=== PATIENT | female | born 2000 ===

== ENCOUNTER 2024-08-11 13:16 | Inpatient (IN) | payer OTHER ==
[~2024-08-11] VITALS: Ht 165.1 cm; Wt 42.7 kg
[2024-08-11 16:42] VITALS: BP 116/89
[2024-08-11 16:48] VITALS: BP 116/89
[2024-08-11] MEDS ORDERED: LORazepam 2 MG/ML 1ML Injection IM PRN (16:50)
[2024-08-11] MEDS ORDERED: HydrOXYzine Pamoate 50 MG Cap PO PRN (16:55)
[2024-08-11] MEDS ORDERED: TraZODone HCl 50 MG Tab PO PRN (16:55)
[2024-08-11] MEDS ORDERED: LORazepam 2 MG Tab PO PRN (16:55)
[2024-08-11] MEDS ORDERED: Melatonin 3 MG Tab PO PRN (16:55)
[2024-08-11] MEDS ORDERED: Haloperidol 5 MG Tab PO PRN (16:55)
[2024-08-11] MEDS ORDERED: Ibuprofen 600 MG Tab PO PRN (16:55)
[2024-08-11] MEDS ORDERED: Aluminum Hydroxide 320MG/5ML 473 ML PO PRN (17:00)
[2024-08-11] MEDS ORDERED: DiphenhydrAMINE HCl 50 MG Cap PO PRN (17:00)
[2024-08-11] MEDS ORDERED: Calcium Carbonate 500 MG Tab Chew PO PRN (17:00)
[2024-08-11] MEDS ORDERED: PRENATAL TABLE1 EAC2 PO (17:01)
[2024-08-11] MEDS ORDERED: Haloperidol Lactate Inj. 5 MG/ML Injection IM PRN (17:05)
[2024-08-11] MEDS ORDERED: FLU VACC TS2024-25(6MOS UP)/PF 45 MCG/0.5 ML SYRINGE IM SCH (17:05)
[2024-08-11] MEDS ORDERED: Acetaminophen 325 MG TABLET PO PRN (17:05)
[2024-08-11] MEDS ORDERED: Ondansetron 4 MG SoluTab MM PRN (17:40)
[2024-08-11] MEDS ORDERED: OLANZapine ODT 10 MG Tab PO PRN (17:40)
[2024-08-11] MEDS ORDERED: Polyethylene Glycol 3350 17 gm PO PRN (17:40)
[2024-08-11] MEDS ORDERED: DiphenhydrAMINE HCl 50 MG/ML 1ML Vial IV PRN (17:40)
--- NOTE | 2024-08-11 18:27 | NUR ---
SHIFT SUMMARY/ADMISSION NOTE PT ARRIVED TO [facility] AT APPROX 1610 FROM [facility] [place] PT IS AxOx2-3 WITH INTERM CONFUSION AND FLIGHT OF IDEAS, PARANOIA AND AGITATION. THE REASON FOR ADMISSION IS PSYCHOSIS. PT CAME HERE ON A INVOL HOLD. PT'S ADMISSION COMPLETE BUT MAY NOT BE THOROUGH HER SPEECH WAS TANGENTIAL AND CONITINUOUSLY OFF TOPIC DURING ADMISSION ASSESSMENT/QUESTIONS. SHE IS FIXATED ON GETTING HER PHONE AND CLOTHES AND GETTING HOME. PT HAS SPOKEN WITH HER MOTHER AND BOYFRIEND MULTIPLE TIMES AND SEEMS TO BE GETTING MORE RAMPED UP AND TEARFUL WITH EACH CALL. THIS RN SPOKE WITH HER MOTHER AFTER PT TO REASSURE HER AND REITERATE THE TREATMENT PLAN FOR THE PATIENT AT THIS TIME. WILL CONTINUE TO REDIRECT, REASSURE AND DISTRACT THE PATIENT THIS EVENING. PHARMACEUTICAL MEDICATIONS ALSO PROVIDED NEEDED. PT IS UNDERWEIGHT PER STANDING SCALE= 89.4LBS. DIETARY CONSULT ORDERED. PT IS CURRENTLY RECEIVING MEDS WITH RN AT THIS TIME. DISTRACTION APPEARS TO BE MOST HELPFUL FOR HER TO COPE.
[2024-08-11] MEDS ORDERED: Nicotine Polacrilex 2 MG Gum PO PRN (18:45)
[2024-08-11] MEDS ORDERED: Valproic Acid Syrup 250MG / 5ML 1 ML PO ONE (21:00)
--- NOTE | 2024-08-12 04:10 | NUR ---
SHIFT SUMMARY PATIENT EXTREMELY ANXIOUS AND PACING HALLS AT BEGINNING OF SHIFT, ASKING FOR HER PHONE AND PERSONAL BLANKET. HAVING DIFFICULTY HOLDING A CONVERSATION DUE TO FLIGHT OF IDEAS. ORIENTED TO PERSON AND MONTH ONLY. DENIES SI, HI, OR AVH. PATIENT COOPERATIVE WITH TAKING ORAL MEDICATIONS. FIRST DOSE OF DEPAKENE GIVEN. TRAZODONE AND MELATONIN GIVEN FOR SLEEP. PATIENT SLEEPING WELL T/O NIGHT. AWAKENS THIS MORNING TO SLIGHT STIMULI, FALLING BACK TO SLEEP EASILY.
--- NOTE | 2024-08-12 08:21 | NUR ---
PT DECLINED BREAKFAST, OFFERED ENSURE, THIS WAS ALSO DECLINED, SHE REPORTS SHE WOULD RATHER SLEEP AT THIS TIME.
[2024-08-12] MEDS ORDERED: Multivitamins 1 Tab PO SCH (09:00)
[2024-08-12 09:03] VITALS: BP 132/74
[2024-08-12 11:38] LABS: Bun/Creatinine Ratio 22.2 (12.0-20.0); Calcium, Blood 9.1 mg/dL (8.5-10.1); Creatinine, Blood 0.95 mg/dL (0.40-1.00); Magnesium, Blood 2.3 mg/dL (1.6-2.4); Potassium, Blood 3.1 mmol/L (3.5-5.5)
[2024-08-12] MEDS ORDERED: LORazepam 1 MG Tab PO ONE (11:50)
--- NOTE | 2024-08-12 12:21 | NUR ---
PT ATTENDED GROUP AND THEN USED THE PHONE, DESPITE HAVING TALKED TO PT ABOUT PLAN PT IMMEDIATELY REQUESTS HER MOTHER PICK HER UP, SHE IS CRYING AND TEARFUL, PHONE CALL ENDED, ATTEMPTED TO REORIENT PT TO TIME AND UNIT, BUT SHE CONTINUES TO SAY SHE NEEDS TO GET HOME BY 3:00 FOR A THERAPY APPT SHE MADE BY PHONE. NEW RX FOR ATIVAN ORDER RECEIVED AND GIVEN.
[2024-08-12] MEDS ORDERED: Valproic Acid Syrup 250MG / 5ML 1 ML PO ONE (12:25)
[2024-08-12 12:49] VITALS: BP 109/72
--- NOTE | 2024-08-12 17:06 | NUR ---
PT HAS NEEDED FREQUENT REDIRECTION AND REORIENTATION, PT STATES SHE WOULD LIKE TO GO HOME, REQUESTS HER PHONE FREQUENTLY. PT REPORTS AT HOME HER MOTHER'S AIR PODS WERE SPEAKING TO HER AND SHE COULD HEAR CONVERSATIONS, ALSO REPORTS HER PHONE IS TELLING HER WHAT TO DO, SHE HAS DIFFICULTY ELABORATING ON THIS. SHE HAS TAKEN A FEW BITES OF FOOD TODAY, ONE ENSURE SHAKE, AN UNCRUSTABLE, SOME FRUIT AND TONIGHT SHE HAS DRANK MOST OF HER HIGH PROTEIN ENSURE. SHE DID HAVE A DIETARY CONSULT TODAY, RECCOMENDATIONS WERE RELAYED TO PROVIDER. PT HAS TAKEN MEDICATIONS WILLINGLY AND IS ABLE TO FOLLOW SIMPLE TASKS AND INSTRUCTIONS.
--- NOTE | 2024-08-13 04:11 | NUR ---
PATIENT SUMMARY: ASSUMED CARE FROM PRIOR SHIFT. PATIENT IS A/OX3, ABLE TO VOICE NEEDS. SHE IS ANXIOUS ABOUT WANTING TO DISCHARGE. SHE HAS PRESSURE SPEEECH WITH SOME IRREGULARITIES IN LOUDNESS AND RHYTHM. REMINDED PATIENT SHE WAS IN A SAFE AND CARING ENVIRONMENT, AND DISCHARGE WAS NOT HAPPENING TONIGHT. INFORMED HER THAT SHE WOULD SEE DR. ROTHMAN AND COULD FURTHER DISCUSS HER POC. SHE CURRENTLY DENIES: SI, VH, AH AND TH. SHE IS COMPLIANT WITH MEDICATIONS AND ASSESSMENT. SHE GOES TO BED ALMOST AT THE BEGINNING OF NOC SHIFT. SHE REFUSED PM SNACKS AND GROUP. SHE SLEEPS THROUGH THE NIGHT WITH NO NOTED BEHAVIORS OR ISSUES. WE WILL CONTINUE TO MONITOR HER WEIGHT AND ENCOURAGE FURTHER NUTRITIONAL SUPPORT. HER MOTHER IS COMING FOR A VISIT LATER TODAY. MOTHER WILL ENCOURAGE/SUPPORT HER STAY IN THE BHU FOR FURTHER NEEDED TREATMENT. WE WILL CONTINUE TO MONITOR EVERY 15 MIN FOR SAFETY AND COMFORT.
--- NOTE | 2024-08-13 06:17 | NUR ---
PATIENT CONTINUES TO SLEEP THROUGH NOC SHIFT. NO NOTED BEHAVIORS OR ISSUES.
--- NOTE | 2024-08-13 08:32 | NUR ---
IMPORTANT MENTAL HEALTH HOLD INFORMATION Patient on mental health hold out of [facility]. SW in regular contact with Lizy CLARK at [phone] or [phone] Day 5 of patient mental health hold reported to be Saturday, August 17, 2024
[2024-08-13] MEDS ORDERED: Valproic Acid Syrup 250MG / 5ML 1 ML PO SCH (09:00)
--- NOTE | 2024-08-13 10:40 | NUR ---
PT DENIED ANY THOUGHTS OF SELF HARM OR HARM AGAINST OTHERS, SHE DENIED AVH OR PHYSICAL PAIN. SHE ENDORSED "A LITTLE BIT OF ANXIETY BECAURSE I WANT TO GO HOME." PT WAS SITTING ON HER BED WRITTING ON GROUP PAPERS. SHE REPORTED, "I'M IN A GOOD MOOD." PT HAS PARTICIPATED IN GROUPS AND BEEN PLEASANT AND COOPERATIVE. SHE GOT REALLY UPSET WHEN SHE WAS TOLD SHE WOULD BE HERE UNTIL EARLY NEXT WEEK. SHE WAS GIVEN A VISTERIL 50MG AND IS NOW IN GROUP.
--- NOTE | 2024-08-13 13:11 | NUR ---
COMMUNICATION WITH FAMILY: PT SPOKE ON THE PHONE WITH HER MOTHER. PT TEARFFUL, REQUESTING THAT THEY COME AND PICK HER UP. HANDED THIS RN THE PHONE AND REQUESTED THAT I TALK TO HER MOTHER. I SPOKE WITH HER MOTHER, REJI. DISCUSSED COMING TO VISIT PT AND CONCERNS R/T TO VISITING. SHE IS AGREEABLE TO REASSESSING PT'S STATUS TOMORROW FOR APPROPRIATENESS VISIT. STATED THAT PT HAS A DEVELOPMENTAL DELAY AND WAS ON AN IEP PLAN IN SCHOOL. STATES THAT PT DOES HAVE TROUBLE PROCESSING DETAILS AND REMEMBERING THINGS. SHE REQUESTED THAT TO HAVE PATIENT CALL HER LATER TONIGHT.
[2024-08-13 15:06] LABS: Bun/Creatinine Ratio 17.8 (12.0-20.0); Calcium, Blood 9.5 mg/dL (8.5-10.1); Creatinine, Blood 0.73 mg/dL (0.40-1.00); Magnesium, Blood 2.2 mg/dL (1.6-2.4); Phosphorus, Blood 3.9 mg/dL (2.5-4.9); Potassium, Blood 3.6 mmol/L (3.5-5.5)
--- NOTE | 2024-08-13 15:53 | NUR ---
PT HAS BEEN CALM THIS AFTERNOON, SHE SPENT TIME WITH THE SOCIAL WORKR AND OTHER STAFF IN THE GROUP ROOM. SHE APPEARS TO BE IN GOOD HUMOR AND HAS BEEN PLEASANT AND COOPERATIVE WITH CARE.
--- NOTE | 2024-08-13 17:47 | NUR ---
PT DRANK 100% OF HER ENSURE AND ATE BITES OF HER DINNER. SHE HAS TALKED TO HER FAMILY SEVERAL TIMES TODAY AND IS DOING WELL WITH HER INTERATIONS. PT HAS BEEN ASKING FOR NICOTINE GUM ABOUT EVERY 2 HOUS. SHE IS IN THE SENSORY ROOM TALKING ON THE PHONE AT THIS TIME.
[2024-08-13] MEDS ORDERED: Mirtazapine 15 MG Tab PO SCH (21:00)
[2024-08-14 03:08] VITALS: BP 112/84
--- NOTE | 2024-08-14 04:16 | NUR ---
SHIFT SUMMARY: ASSUMED CARE FROM PRIOR SHIFT. PATIENT IS A/OX4, ABLE TO VOICE NEEDS AND HAVE MEANINGFUL CONVERSATION. PATIENT IS TALKING ON THE PHONE TO BOYFRIEND AT BEGINNING OF SHIFT. ALTHOUGH DHE IS TEARFUL WHEN SHE HANGS UP, SHE IS ABLE TO SELF-CALM AND TALK ABOUT HER FEELINGS. SHE CURRENTLY DENIES SI, VH, AH AND TH. SHE IS PROUD OF HERSELF FOR GAINING A POUND. SHE IS STILL HOPEFUL FOR A DISCHARGE THIS WEEKEND. SHE IS LESS OBSESSED ABOUT ASKING "TO GO HOME". SHE IS COMPLIANT WITH MEDICATIONS AND ASSESSMENT. SHE WAS ASKED TO PARTICIPATE IN SNACK TIME AND THE LAST GROUP ACTIVITY. SHE DID REQUEST POP CORN AND A COOCKIE HOWEVER, SHE DID NOT EAT EITHER. SHE DID MUSIC TIME FOR A COUPLE OF HOURS THAN WENT TO BED ON HER OWN. SHE DID SLEEP THROUGH THE NIGHT. NO NOTED BEHAVIORS OR ISSUES. WE WILL CONTINUE TO MONITOR EVERY 15 MIN FOR SAFETY AND COMFORT.
--- NOTE | 2024-08-14 06:27 | NUR ---
PATIENT SLEPTED THROUGH THE NIGHT. NO NOTED ISSUES OR BEHAVIORS.
[2024-08-14 08:06] VITALS: BP 132/84
[2024-08-14] MEDS ORDERED: Thiamine HCl 100 MG Tab PO SCH ×2 (09:00)
[2024-08-14 09:57] LABS: Bun/Creatinine Ratio 18.6 (12.0-20.0); Calcium, Blood 9.5 mg/dL (8.5-10.1); Creatinine, Blood 0.86 mg/dL (0.40-1.00); Magnesium, Blood 2.4 mg/dL (1.6-2.4); Phosphorus, Blood 3.5 mg/dL (2.5-4.9); Potassium, Blood 3.6 mmol/L (3.5-5.5)
--- NOTE | 2024-08-14 17:16 | NUR ---
SHIFT SUMMARY PT A/O X4; PLEASANT AND COOPERATIVE WITH CARE. SHE DENIES SI, HI, AVH. SHE IS COMPLIANT WITH MEDICATIONS AND ASSESSMENT. SHE IS MORE UNDERSTANDING OF NEED FOR HOSPITALIZATION THIS SHIFT AND IS NOT ASKING TO "GO HOME" MUCH. SHE IS ACTIVE ON THE MILEU AND DEVELOPED A STRATEGY WITH STAFF ON HOW TO INCREASE CALORIE/PROTEIN INTAKE. HER MOTHER AND S/O VISITED THIS SHIFT AND THE VISIT WENT WELL. MOTHER WILLING TO HELP PT POST DISCHARGE AND INVOLVED IN HER CARE. PT TO POSSIBLY DISCHARGE HOME ON FRIDAY.
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
[2024-08-14 20:23] VITALS: BP 114/83
[2024-08-14] MEDS ORDERED: Divalproex Sodium 500 MG TABLET.DR PO SCH (21:00)
--- NOTE | 2024-08-15 03:01 | NUR ---
SHIFT SUMMARY: ASSUMED CARE FROM PRIOR SHIFT. PATIENT IS A/OX4, ABLE TO VOICE NEEDS AND HAVE MEANINGFUL CONVERSATION. SHE CONTINUES TO IMPROVE AND MAKE PROGRESS. SHE DISCUSSED THIS EVENING HOW SHE WOULD LIKE TO GO TO [facility] NEXT YEAR FOR A SENIOR LIVING GOAL. SHE KNOWS SHE NEEDS TO CONTINUE TO WORK ON HER NUTRITION. SHE CURRENTLY DENIES SI, VH, AH AND TH. I WILL PROVIDE HER WITH [facility] CC INFORMATION FOR A TOUR AND STATE PILOT, CASE MANAGMENT WITH HER THERAPEUTIC ASSISTANT, EATING DISORDER SUPPORT, HELP-LINE AND ACT FOR COUNSELING/PSYCHOTHERAPY. SHE IS COMPLLANT WITH HER MEDICATIONS, ASSESSMENT AND POC. SHE SLEEPS THROUGH TH E NIGHT. NO NOTED BEHAVIORS OR ISSUES. WE WILL CONTINUE TO MONITOR EVERY 15 MIN FOR SAFTY AND COMFORT.
--- NOTE | 2024-08-15 05:28 | NUR ---
patient slepted through the night. no noted issues or behaviors.
[2024-08-15 09:50] LABS: Bun/Creatinine Ratio 31.3 (12.0-20.0); Calcium, Blood 9.7 mg/dL (8.5-10.1); Creatinine, Blood 0.77 mg/dL (0.40-1.00); Magnesium, Blood 2.7 mg/dL (1.6-2.4); Phosphorus, Blood 3.4 mg/dL (2.5-4.9); Potassium, Blood 3.8 mmol/L (3.5-5.5)
--- NOTE | 2024-08-15 17:19 | NUR ---
SHIFT SUMMARY PT A/O X4; PLEASANT AND COOPERATIVER WITH CARE. SHE IS COMPLIANT WITH ALL MEDICATIONS AND HAS BEEN TRYING HARD TO UP HER FOOD AND FLUID INTAKE. BUN/CREATININE RATION HIGH THIS AM, SO ENCOURAGING PT TO INCREASE HER WATER INTAKE. PT REPORTS THAT SHE IS "DOING SO MUCH BETTER" AND IS ANXIOUS TO POSSIBLY DISCHARGE HOME TOMORROW. MOTHER AND FIANCE VISITED PT THIS SHIFT AND BROUGHT IN HER GLASSES AND TWO SPORTS BRAS. THESE BELONGINGS ARE WITH THE PATIENT AT THIS TIME. NO COMPLAINTS THIS SHIFT AND SHE CONTINUES TO BE MONITORED VIA Q15 ROUNDING FOR SAFETY.
[2024-08-15 20:26] VITALS: BP 127/85
--- NOTE | 2024-08-15 21:09 | NUR ---
CARE COORDINATION: LENGTHY TALK WITH PATIENT AND MOTHER THIS SHIFT REGARDING DISCHAGE PLANNING AND FOLLOW UP CARE. FAVIAN'S ENVIRONMENTAL HEALTH TECHNICIAN GOAL IS TO ATTEND COMMUNITY COLLAGE. I DID PROVIDE HER WITH [facility] PHONE NUMBER TO SET UP A TOUR AND ROOM SERVICE WAITER FOR NEXT YEAR. COAGULATOR CASE MANANAGEMENT AND FOOD SMART PROGRAM RESOURCES GIVEN INCLUDING PHONE NUMBER. PROVIDED: ([employer]) NATIONAL [employer]ATING [employer]ORDER [employer]OCIATION PACKET. THIS ASSOCIATION WILL PROVIDE SCREENING TOOLS TO ASSIST FAVIAN AND FAMILY ON PROPER DIAGNOSIS. THEY WILL ALSO ASSIST ON HOW TO SUPPORT HER NEEDS WHILE SHE CONTINUES TO WORK ON HER NUTRITIONAL INTAKE. All parties verbalized an understanding.
--- NOTE | 2024-08-16 04:30 | NUR ---
SHIFT SUMMARY: ASSUMED CARE FROM PRIOR SHIFT. PATIENT IS A/OX4, ABLE TO VOICE NEEDS AND HAVE MEANINGFUL CONVERSATION. REVIEWD DISCHARGE PLAN WITH PATIENT AND MOTHER. (SEE PRIOR NOTE). THEY ARE ABLE TO VOICE AN UNDERSTANDING OF FAVIAN'S SHORT AND RUBBER MOULDING MACHINE OPERATOR GOALS. LAYLA WAS GIVEN INFORMATION/EDUCATION ON HOW TO ACCESS CASE MANAGEMENT WITH HER VP SITE AND HOW TO GET ASSESSED FOR ANY EATING DISORERS. FAVIAN IS AGREEABLE TO GETTING FURTHER SERVICES FOR NUTRITIONAL SUPPORT. SHE CURRENTLY DENIES ANY SI, VH, AH AND TH. SHE IS COMPLIANT WITH MEDICATIONS, ASSESSMENT AND HER POC. SHE DID HAVE 3 PROTEIN SHAKES 2 AND HAS BEEN COMMITED TO INCREACING HER WATER INTAKE. SHE SLEPTED THROUGH THE NIGHT AND HAD NO BEHAVIORS OR ISSUES.
[2024-08-16 07:56] VITALS: BP 109/78
--- NOTE | 2024-08-16 08:16 | NUR ---
HOSPITAL DISCHARGE APPOINTMENT INFORMATION Patient scheduled for hospital discharge appointment with primary care provider, Arelis Johnson DO on Tuesday, August 20, 2024 at 1330 // [address] [place], [place] [address] // [phone] Information entered into patient's discharge packet
--- NOTE | 2024-08-16 08:48 | NUR ---
IMPORTANT MENTAL HEALTH FOLLOW UP APPOINTMENT INFORMATION Patient is scheduled to meet with [facility] crisis team on Saturday, August 17, 2024 at 1300 for mental health follow up appointment // [address], [place], [place] [address] // [phone] Information entered into patient's discharge packet
--- NOTE | 2024-08-16 09:09 | NUR ---
SHIFT ASSESSMENT: AT THE TIME OF THE INTERVIEW PT WAS IN THE SENSORY ROOM WORKING ON PAPERWORK, SHE IS FORWARD THINKING ABOUT CONTINUEING MENTAL HEALTH TREATMENT AFTER DISCHARGE. SHE IS SETTING GOALS, VERY PLEASANT MOOD. "i'M DOING GOOD...SURE HOPE I CAN GO HOME TODAY...TOMORROW IS MY BIRTHDAY!" SHE DENIED SI, HI, AVH AND PHYSICAL PAIN. SHE ENDORSED HAVING "A LITTLE BIT OF ANXIETY." HER AFFECT WAS EUTHYMIC. SHE IS COOPERATIVE WITH CARE. PT ATE A STRING CHEESE AND IS PRESENTLY DRINKING AN ENSURE.
[2024-08-16] MEDS ORDERED: DIVA500EC PO (11:13)
[2024-08-16] MEDS ORDERED: PRENATAL TABLE1 EAC2 (11:14)
[2024-08-16] MEDS ORDERED: MIRT15 (11:14)
--- NOTE | 2024-08-16 13:15 | NUR ---
13:13 PT DISCHARGED TO HOME WITH ALL OF HER BELONGINGS AND DISCHARGE INSTRUCTIONS, SHE IS BEING TRANSPORTED HOME WITH HER MOTHER AND BOYFRIEND. SHE EXPRESSED READINESS FOR DISCHARGE.
== END 2024-08-16 13:13 | disposition home or self-care (01) | DRG 885 ==
LOC: BHU 13:16
PROVIDERS: ADMIT Psychiatry & Neurology Psychiatry
DX: F31.2 Bipolar disorder, current episode manic severe with psychotic features (principal); Z79.899 Other long term (current) drug therapy
CPT/HCPCS: 36415; 80048; 83735; 84100; A9270

== ENCOUNTER 2024-09-09 10:29 | Inpatient (IN) | payer OTHER ==
[~2024-09-09] VITALS: Ht 167.6 cm; Wt 42.6 kg
[~2024-09-09 10:29] MED LIST: DIVA500EC PO; MIRT15 PO; PRENATAL TABLE1 EAC2; PRENATAL TABLE1 EAC2 PO
[2024-09-10] MEDS ORDERED: Calcium Carbonate 500 MG Tab Chew PO PRN (06:55)
[2024-09-10] MEDS ORDERED: Aluminum Hydroxide 320MG/5ML 473 ML PO PRN (06:55)
[2024-09-10] MEDS ORDERED: Melatonin 3 MG Tab PO PRN (06:55)
[2024-09-10] MEDS ORDERED: Acetaminophen 325 MG TABLET PO PRN (06:55)
[2024-09-10] MEDS ORDERED: Polyethylene Glycol 3350 17 gm PO PRN (06:55)
[2024-09-10] MEDS ORDERED: TraZODone HCl 50 MG Tab PO PRN (06:55)
[2024-09-10] MEDS ORDERED: Haloperidol 5 MG Tab PO PRN (07:00)
[2024-09-10] MEDS ORDERED: DiphenhydrAMINE HCl 50 MG/ML 1ML Vial IV PRN (07:00)
[2024-09-10] MEDS ORDERED: DiphenhydrAMINE HCl 50 MG Cap PO PRN (07:00)
[2024-09-10] MEDS ORDERED: LORazepam 2 MG/ML 1ML Injection IM PRN (07:00)
[2024-09-10] MEDS ORDERED: HydrOXYzine Pamoate 50 MG Cap PO PRN (07:00)
[2024-09-10] MEDS ORDERED: FLU VACC TS2024-25(6MOS UP)/PF 45 MCG/0.5 ML SYRINGE IM SCH (07:00)
[2024-09-10] MEDS ORDERED: Haloperidol Lactate Inj. 5 MG/ML Injection IM PRN (07:00)
[2024-09-10] MEDS ORDERED: OLANZapine ODT 10 MG Tab MM PRN (07:05)
[2024-09-10] MEDS ORDERED: LORazepam 2 MG Tab PO PRN (07:05)
[2024-09-10] MEDS ORDERED: Ibuprofen 600 MG Tab PO PRN (07:05)
[2024-09-10] MEDS ORDERED: Ondansetron 4 MG SoluTab MM PRN (07:15)
[2024-09-10] MEDS ORDERED: Multivitamins 1 Tab PO SCH (09:00)
[2024-09-10 14:38] VITALS: BP 115/84
[2024-09-10 15:02] VITALS: BP 115/84
[2024-09-10] MEDS ORDERED: DIVA250EC PO (15:29)
[2024-09-10] MEDS ORDERED: OLAN5 PO (15:31)
--- NOTE | 2024-09-10 16:10 | NUR ---
ADMIT INITIAL ADMIT QUESTIONS DONE W/ JERARDO RN IN ROOM AND SUPERVISING.
--- NOTE | 2024-09-10 16:17 | NUR ---
ADMIT ARRIVED AT 1443 W/ [facility]. PT A&O X4; COMMINUCATES APPROPRIATELY AND ABLE TO MAKE NEEDS KNOWN. PT APPEARS OPTIMISTIC ABOUT CAREPLAN AND REQUESTED TO COME TO THIS FACILITY D/T HAVING GOOD EXPERIENCE PREVIOUS ADMIT. PT DENIES SI AT THIS TIME AND STATES THAT SHE HAS NEVER MADE AN ATTEMPT. PT STATES THERE ARE TRIGGERING EVENTS AT HOME WHICH INCLUDE SLAMMING DOORS AND DOGS BARKING. PT APPEARS TO HAVE POOR HEALTH LITERACY AND DOES NOT KNOW WHICH MEDICATIONS SHE IS TAKING "I JUST KNOW I HAVE 4 OR 5 PILL BOTTLES" AND THAT SHE FEELS OVERWHELMED D/T BOYFRIEND AND MOTHER TRYING TO HELP W/ MEDICATION. 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 PT SHOWED CONCERN FOR WEIGHT LOSS FROM PREVIOUS ADMIT AND STATES "I JUST NEED TO EAT", DENIES HAVING WARPED VIEW/RELATIONSHIP W/ FOOD TO THIS RN. PT HAS NOSE PIERCING W/ BLUE STONE ON LEFT NOSE THAT IS NOT REMOVABLE; PT HAS A PINK SPORTS BRA THAT WAS ASSESSED BY JERARDO RN. WILL CONTINUE TO MONITOR.
[2024-09-10] MEDS ORDERED: Nicotine Polacrilex 2 MG Gum PO PRN (16:40)
--- NOTE | 2024-09-10 17:45 | NUR ---
SHIFT SUMMARY NO ACUTE CHANGES IN MENTATION SINCE ADMIT NOTE. PT INTERACTIVE W/ STAFF, PLEASANT, AND COOPERATIVE. PT DURING DINNER ASKED ABOUT PSYCH MEDS D/T PREVIOUS REGIMEN NOT WORKING PER PT. PT STATED THAT SHE HAS BEEN COMPLIANT, BUT ALSO APPEARS TO HAVE SOME UNCERTAINTY/CONFUSION ABOUT MEDICATIONS. EDUCATION GIVEN ON IMPORTANCE OF KNOWING WHAT MEDICATION SHE TAKES (E.G., DOSING, FREQUENCY, ETC.).
[2024-09-10 19:06] VITALS: BP 134/88
[2024-09-10] MEDS ORDERED: Mirtazapine 15 MG Tab PO SCH (21:00)
[2024-09-10] MEDS ORDERED: Divalproex Sodium 250 MG TABLET.DR PO SCH (21:00)
--- NOTE | 2024-09-11 04:10 | NUR ---
SHIFT SUMMARY: PATIENT WAS AWAKE IN THE MILIEU AT THE BEGINNING OF THE SHIFT. SHE WAS PLEASANT AND TALKATIVE, STATED THAT SHE WAS GLAD TO BE BACK ON THE BHU. SHE PARTICIPATED IN SNACK AND FOLLOW UP GROUP AT 1999. SHE WAS COMPLIANT WITH EVENING MEDICATIONS. SHE SPENT TIME WITH STAFF AND PEERS IN THE DAY ROOM BEFORE BEDTIME. SHE WENT TO BED AT ABOUT 2130 AND WAS NOTED TO BE RESTING QUIETLY WITH EYES CLOSED AND RESPIRATIONS CONFIRMED FOR THE REMAINDER OF THE SHIFT. SHE DENIED THOUGHTS OF SI/HI OR SELF HARMING THIS SHIFT. CONTINUING TO MONITOR FOR SAFETY WITH Q15 MINUTE CHECKS.
--- NOTE | 2024-09-11 07:00 | NUR ---
NOSE PIERCING: PATIENT HAS A PIERCING TO THE LEFT SIDE OF HER NOSE. IT IS FIRMLY IN PLACE AND SHE STATES IT CANNOT BE REMOVED. SHE CONTRACTS FOR SAFETY FOLLOWS: SHE WILL NOT TRY TO REMOVE THE PIERCING NOR WILL SHE TRY TO HARM HERSELF IN ANY WAY WITH IT. SHE WILL COME TO STAFF IF SHE FEELS LIKE SHE NEEDS HELP WITH IT.
--- NOTE | 2024-09-11 08:32 | NUR ---
SHIFT ASSESSMENT: PT CAME TO THE DESK AND REPORTED THAT SHE IS VERY ANXIOUS AND WANTED HER NICOTINE GUM. SHE RECEIVED THE GUM AND MORNING MEDS AT 07:54. PT REQUESTED SOMETHING FOR ANXIETY AND WAS GIVEN VISTERIL 50MG AT 08:11, MASS SCORE OF 7. PT DENIED SI, HI AND PAIN. WHEN ASKED ABOUT AVH SHE REPLIED, "NOT RIGHT NOW BUT I KEEP HEARING MY NAME AND THAT'S FREAKING ME OUT." AFFECT IS CONSTRICTED. SHE REPORTS SEEING RED LIGHTS ON DIFFERENT SURFACES. SHE REPORTED HER MOOD "SCARY...I'M ANXIOUS AND DON'T KNWO WHY." PT WAS GIVEN ATIVAN 2MG PO AT 8:59 FOR A MASS SCORE OF 9. SHE WAS GIVEN THE USE OF THE PHONE TO ATTEMPT CALMING BY TALKING TO HER MOM. MOM WILL VISIT TOMORROW AFTERNOON.
[2024-09-11] MEDS ORDERED: Prenatal Vit/FE Fumarate/FA 1 Tab PO SCH (09:00)
[2024-09-11] MEDS ORDERED: ARIPiprazole 5 MG Tab PO SCH (12:00)
[2024-09-11 12:03] VITALS: BP 112/59
--- NOTE | 2024-09-11 14:09 | NUR ---
PT REPORTED THAT THE ATIVAN 2MG "HELPED ME...I'M FEELING MUSHTAQ TIRED BUT BETTER." SHE IS SITTING IN HER BED WORKING ON WORD SEARCH PAPERS.
--- NOTE | 2024-09-11 14:15 | NUR ---
PT'S NOSE PIERCING IS INTACT, AREA IS CLEAN AND WITHOUT ANY SIGN OF INFECTION.
[2024-09-11 20:08] VITALS: BP 116/74
[2024-09-11] MEDS ORDERED: OLANZapine 5 MG Tab PO SCH (21:00)
--- NOTE | 2024-09-12 04:08 | NUR ---
SHIFT SUMMARY: PATIENT WAS IN THE MILIEU TALKING TO STAFF AND PEERS AT THE BEGINNING OF THE SHIFT. SHE PARTICIPATED IN SNACK AND FOLLOW UP GROUP AT 1999. SHE WANTED TO WEIGH HERSELF AFTER SNACK AND WAS SHOCKED THAT SHE IS UP TO 92 LB. SHE TOOK OFF HER ROBE BUT IT ONLY TOOK A BIT OFF AND SHE WAS STILL ABOVE YESTERDAY. SHE WAS ADVISED TO WAIT A FEW DAYS BEFORE WEIGHING IN AGAIN. SHE USED THE PHONE TO TALK TO HER FAMILY. IT WAS HER BOYFRIEND'S BIRTHDAY, SO SHE TALKED WITH HIM. SHE WAS PLEASANT AND COOPERATIVE WITH CARES. SHE WAS COMPLIANT WITH EVENING MEDICATIONS. SHE ASKED PERTINENT QUESTIONS ABOUT HER MEDICATIONS AND STATED THAT SHE IS GLAD TO BE ON THE "RIGHT MEDS" AGAIN. SHE WENT TO BED EARLY AND WAS NOTED TO BE RESTING QUIETLY WITH EYES CLOSED AND RESPIRATIONS CONFIRMED FOR THE REMAINDER OF THE SHIFT. SHE DENIED THOUGHTS OF SI/HI OR SELF HARM THIS SHIFT. CONTINUING TO MONITOR FOR SAFETY WITH Q15 MINUTE CHECKS.
--- NOTE | 2024-09-12 04:11 | NUR ---
NOSE PIERCING SAFETY CHECK: NOSE PIERCING IN PLACE IN LEFT NOSTRIL. PATIENT STATES IT DOES NOT HURT. IT IS CLEAN, DRY AND INTACT. PATIENT CONTRACTS FOR SAFETY, AGREEING NOT TO REMOVE IT OR USE IT TO HARM SELF IN ANY WAY. SHE AGREES TO CONTACT STAFF IF SHE NEEDS HELP WITH THE PIERCING. CONTINUING TO MONITOR.
[2024-09-12 09:09] VITALS: BP 124/87
[2024-09-12] MEDS ORDERED: ARIPiprazole 300 MG SUSER.SYR IM SCH (12:00)
--- NOTE | 2024-09-12 16:28 | NUR ---
SHIFT SUMMARY PT A/O X4 AND COOPERATIVE WITH CARE. SHE DENIES SI AND HI BUT REPORTS THAT SHE IS SEEING "LIGHTS" AND HEARING HER NAME. PT PRESENTS TEARFUL AT TIMES AND DISLIKES BEING ALONE. PT REPORTS FOLLOWING HER MOM AROUND CONSTANTLY WHEN SHE WAS AT HOME BECAUSE SHE COULD NOT BE ALONE. PT VISITED WITH BOYFRIEND THIS SHIFT AND BECAME TEARFUL AT THE END OF THE VISIT. SHE RECEIVED HER FIRST ABILIFY INJECTION THIS SHIFT, WHICH SHE TOLERATED WELL. PT MONITORED VIA Q15 ROUNDING FOR SAFETY. WILL REPORT TO ONCOMING RN.
[2024-09-12 20:13] VITALS: BP 116/75
[2024-09-13 00:28] VITALS: BP 117/95
--- NOTE | 2024-09-13 04:13 | NUR ---
SHIFT SUMMARY NOC PT WAS ASLEEP AT THE VERY START OF SHIFT. SHE APPROACHED THE MHA AND TOLD HIM SHE WOKE UP VERY SCARED TO SEE ANOTHER PT, A MALE, SITTING ON THE OPPOSITE BED AND WAS STARING AT HER. THIS MALE PT WAS IMMEDIATLEY REDIRECTED AND EDUCATED TO THE RULES PERTAINING TO THE UNIT AND LIMITS WITH OTHER PATIENTS. PT REASSURED PERTAINING TO HER SAFETY FOR THE SHIFT AND HER STAY. PT SPENT THE NEXT COUPLE OF HOURS IN THE SENSORY ROOM, ADMINISTERD HER ON TWO OCCASIONS FOR HER ANXIETY. SHE DID ENDORSE VISUAL HALLUCIATIONS WITH COLORS OF RED AND THEN WHITE, SWITCHING BACK AND FORTH, DENIED SI/HI. ENDORSED FEELING VERY ANXIOUS AND REALLY WANTING TO D/C, TALKED WITH ABOUT WHAT SHE NEEDS TO CONTINUE TO SUCH ATTENDING ALL GROUPS, MEDS ETC. SHE STATED CLEAR UNDERSTANDING. PT HAS CONTINUED TO BE MONITORED THROUGHOUT SHIFT WITH Q15 CHECKS.
[2024-09-13 07:52] VITALS: BP 116/60
[2024-09-13] MEDS ORDERED: ARIPiprazole 10 MG Tab PO SCH (09:00)
[2024-09-13] MEDS ORDERED: BusPIRone HCl 5 MG Tab PO SCH (14:00)
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
[2024-09-14] MEDS ORDERED: ARIPiprazole 5 MG Tab PO SCH (09:00)
== END 2024-09-13 15:55 | disposition home or self-care (01) | DRG 885 ==
LOC: BHU 10:29
PROVIDERS: ADMIT Psychiatry & Neurology Psychiatry
DX: F31.2 Bipolar disorder, current episode manic severe with psychotic features (principal); Z79.899 Other long term (current) drug therapy; Z79.1 Long term (current) use of non-steroidal anti-inflammatories (NSAID)
CPT/HCPCS: A9270; J0401